=== PATIENT | female | born 1990 | race African-American/Black ===

== ENCOUNTER 2022-10-05 20:44 | Inpatient (IN) ==
[2022-10-05 21:58] LABS: Urine Benzodiazepine Screen None Detected (None Detect); Urine Cannabinoids Screen None Detected (None Detect); Urine Opiates Screen None Detected (None Detect)
[2022-10-05] MEDS ORDERED: LORazepam 2 mg VIAL 1 ml IM PRN (22:45)
[2022-10-05] MEDS ORDERED: Lorazepam PYXIS KEY PRN (22:45)
[2022-10-05] MEDS ORDERED: Droperidol 5 MG/2 ML 2 ML VIAL IM ONE (23:41)
[2022-10-05] MEDS ORDERED: LORazepam 2 mg VIAL 1 ml ONE (23:43)
[2022-10-06 00:39] LABS: ABS Basophils 0.1 10^3/uL (0.0-0.1); ABS Lymphocytes 2.1 10^3/uL (1.0-4.8); ABS Monocytes 0.6 10^3/uL (0.0-0.9); ABS Neutrophils 9.4 10^3/uL (1.5-7.6); Eosinophil % 0.4 %; Hematocrit 34.1 % (35-45); Lymphocyte % 17.5 %; Mean Corpuscular Hemoglobin 26.3 pg (27-33); Mean Corpuscular Hgb Conc 32.3 g/dL (31-36); Mean Corpuscular Volume 81.3 fL (80-97); Mean Platelet Volume 9.1 fL (7.5-11.2); Platelet Count 158 10^3/uL (150-450); Red Blood Count 4.19 10^6/uL (3.63-4.92); Red Cell Distribution Width 14.9 % (12-17); White Blood Count 12.2 10^3/uL (3.8-11.8)
[2022-10-06 00:59] LABS: Urine Appearance Clear; Urine Bilirubin Negative (Negative); Urine Blood 3+ (Negative); Urine Color Yellow; Urine Glucose 1+(50 mg/dL) (Negative); Urine Ketones Negative (Negative); Urine Nitrite Negative (Negative); Urine Protein Negative (Negative); Urine Urobilinogen Negative (Negative)
[2022-10-06 01:04] LABS: Urine Bacteria Absent (Absent); Urine Red Blood Cell Trace(0-2/hpf) (Absent); Urine Squamous Epithelial Cell Present (Absent); Urine White Blood Cell Trace(0-5/hpf) (Absent)
[2022-10-06 01:22] LABS: CO2 Carbon Dioxide 24 mmol/L (22-32); Chloride 102 mmol/L (101-111); Potassium 2.8 mmol/L (3.5-5.0); Sodium 136 mmol/L (135-145)
[2022-10-06 01:23] LABS: ALT 10 U/L (7-52); AST 19 U/L (13-39); Acetaminophen < 15 mcg/mL; Albumin/Globulin Ratio 2.2 (1-3); Alcohol, S < 13 mg/dL (<13); Alkaline Phosphatase 48 U/L (35-149); Anion Gap 10 mmol/L (2-16); Blood Urea Nitrogen 12 mg/dL (6-24); Calcium 8.6 mg/dL (8.6-10.3); Creatinine, Serum 0.81 mg/dL (0.51-0.95); Globulin 1.8 g/dL (2-4); Glucose 205 mg/dL (70-100); Salicylate < 2.50 mg/dL (<30); Total Protein 5.8 g/dL (6.4-8.9); eGFR CKD-EPI 98.2 (>60)
[2022-10-06 01:34] LABS: TSH Ultra Thyroid Stim Horm 1.14 mcIU/mL (0.34-5.60)
[2022-10-06] MEDS ORDERED: Potassium EFFERVES 25 meq TAB PO ONE (02:00)
[2022-10-06] MEDS ORDERED: Potassium Chlor 20 meq TAB.ER PO ONE (07:09)
[2022-10-07] MEDS ORDERED: Haloperidol 5 mg/ml SDV IV/IM 5 MG/ML AMP ONE (02:30)
[2022-10-07] MEDS ORDERED: LORazepam 2 mg VIAL 1 ml ONE (02:30)
[2022-10-07] MEDS: Potassium Chlor 20 meq TAB.ER PO SCH (09:00)
[2022-10-07] MEDS ORDERED: chlorproMAZINE 25 MG/ML 2 ML (50 MG) ONE (10:20)
[2022-10-07] MEDS ORDERED: chlorproMAZINE 25 MG/ML 2 ML (50 MG) IM ONE (10:24)
[2022-10-08] MEDS ORDERED: OLANZapine IM (NF) 10 MG VIAL IM ONE ×4 (10:46→18:45)
[2022-10-08] MEDS: Potassium Chlor 20 meq TAB.ER PO SCH (14:35)
[2022-10-09] MEDS: Potassium Chlor 20 meq TAB.ER PO SCH (10:51)
[2022-10-09] MEDS: OLANZapine 10 mg TAB*ODT PO SCH (11:21)
[2022-10-10] MEDS: Potassium Chlor 20 meq TAB.ER PO SCH (08:18)
[2022-10-10] MEDS: OLANZapine 10 mg TAB*ODT PO SCH (08:18)
[2022-10-11] MEDS: Potassium Chlor 20 meq TAB.ER PO SCH (07:27)
[2022-10-11] MEDS: OLANZapine 10 mg TAB*ODT PO SCH (07:28)
[2022-10-12] MEDS: OLANZapine 10 mg TAB*ODT PO SCH (08:16)
[2022-10-12] MEDS: Potassium Chlor 20 meq TAB.ER PO SCH (08:16)
[2022-10-13] MEDS: Potassium Chlor 20 meq TAB.ER PO SCH (08:24)
[2022-10-13] MEDS: OLANZapine 10 mg TAB*ODT PO SCH (08:24)
[2022-10-14] MEDS: Potassium Chlor 20 meq TAB.ER PO SCH (10:14)
[2022-10-20 10:21] LABS: Albumin 4.3 g/dL (3.2-5.2); CO2 Carbon Dioxide 28 mmol/L (22-32); Calcium 9.2 mg/dL (8.6-10.3); Chloride 101 mmol/L (101-111); Sodium 133 mmol/L (135-145)
[2022-10-20 10:28] LABS: ALT 24 U/L (7-52); Albumin/Globulin Ratio 1.7 (1-3); Alkaline Phosphatase 47 U/L (35-149); Blood Urea Nitrogen 13 mg/dL (6-24); Cholesterol 206 mg/dL; Creatinine, Serum 0.77 mg/dL (0.51-0.95); Globulin 2.5 g/dL (2-4); Glucose 96 mg/dL (70-100); HDL Cholesterol 91.6 mg/dL; LDL Cholesterol 107 mg/dL; Total Protein 6.8 g/dL (6.4-8.9); Triglycerides 39 mg/dL; eGFR CKD-EPI 104.4 (>60)
[2022-10-20 10:30] LABS: Anion Gap 4 mmol/L (2-16)
[2022-10-23] MEDS: Al Hydrox/Mg Hydrox/Simet LIQ 30 ML UDC PO PRN (20:24)
[2022-10-23] MEDS ORDERED: Benztropine 2 mg AMP 1 MG/ML 2 ml AMP IM ONE (22:00)
[2022-10-30] MEDS: Al Hydrox/Mg Hydrox/Simet LIQ 30 ML UDC PO PRN (04:33)
[2022-10-30 09:58] LABS: Hematocrit 40.3 % (35-45); Mean Corpuscular Hemoglobin 26.3 pg (27-33); Mean Corpuscular Hgb Conc 32.2 g/dL (31-36); Mean Corpuscular Volume 81.6 fL (80-97); Platelet Count 190 10^3/uL (150-450); Red Blood Count 4.93 10^6/uL (3.63-4.92); Red Cell Distribution Width 17.3 % (12-17); White Blood Count 9.1 10^3/uL (3.8-11.8)
[2022-10-30 10:36] LABS: Albumin 4.1 g/dL (3.2-5.2); Albumin/Globulin Ratio 1.8 (1-3); Calcium 9.5 mg/dL (8.6-10.3); Creatinine, Serum 0.97 mg/dL (0.51-0.95); Globulin 2.3 g/dL (2-4); Total Bilirubin 0.2 mg/dL (0.2-1.0); Total Protein 6.4 g/dL (6.4-8.9); eGFR CKD-EPI 79.1 (>60)
[2022-10-30 11:01] LABS: ABS Basophils 0.1 10^3/uL (0.0-0.1); ABS Eosinophils 0.1 10^3/uL (0.0-0.5); ABS Lymphocytes 2.3 10^3/uL (1.0-4.8); ABS Monocytes 0.9 10^3/uL (0.0-0.9); ABS Neutrophils 5.8 10^3/uL (1.5-7.6); Eosinophil % 0.9 %; Lymphocyte % 25.1 %
[2022-11-03] MEDS ORDERED: Atropine 1% OPHTH.SOL 1 DROP BTL 2-5 ML SL PRN (17:15)
[2022-11-05 10:51] VITALS: BP 109/89
== END 2022-11-05 10:00 | DRG 753 ==
LOC: ED 20:44 → BSU 10-06 10:57
PROVIDERS: ADMIT Psychiatry & Neurology Psychiatry; ATTEND Student in an Organized Health Care Education/Training Program